=== PATIENT | male | born 1950 | race Caucasian/White ===

== ENCOUNTER 2019-02-07 15:11 | Emergency (ER) | payer BC, MEDICARE, OTHER ==
--- NOTE | 2019-02-07 16:15 | EDM.PDOC ---
ED HPI GENERAL MEDICAL PROBLEM - General Chief Complaint: Cardiovascular Problem Stated Complaint: HEART FLUTTERS Time Seen by Provider: 02/07/19 15:45 Source of Information: Reports: Patient History Limitations: Reports: No Limitations - History of Present Illness INITIAL COMMENTS - FREE TEXT/NARRATIVE: 68-year-old male who recently had an appointment with his primary provider, had his diltiazem increased from 300-360 mg because of persistent mild hypertension. He has occasional fluttering in the chest, today he had 2 episodes that were somewhat worse and more persistent for several minutes. He was concerned that it was because of the increased dose of his blood pressure medication, so he called the clinic to talk to his provider and they sent him to the emergency room. He arrived stable, in sinus rhythm, with no symptoms. Onset: Unknown/Unsure Associated Symptoms: Denies: Chest Pain, Cough, Malaise, Nausea/Vomiting, Shortness of Breath, Weakness denies Pain Score (Numeric/FACES): 0 - Related Data Allergies Allergy/AdvReac Type Severity Reaction Status Date / Time MYKEL Inhibitors Allergy Cough Verified 02/07/19 15:18 [id number]-[id number] Reductase Allergy Muscle Verified 02/07/19 15:18 Inhibitor Aches Home Meds: Home Meds Aspirin [Adult Low Dose Aspirin EC] 81 mg PO DAILY 05/23/13 [History] Multivitamin with Minerals [Multiple Vitamin] 1 tab PO DAILY 05/23/13 [History] Albuterol Sulfate [Proair Hfa] 8.5 gm INH Q4HR PRN 04/12/18 [History] Albuterol [Proventil Neb Soln] 2.5 mg INH Q4HR PRN 04/12/18 [History] Loratadine [Claritin] 10 mg PO ASDIRECTED 04/12/18 [History] Diltiazem HCl [Diltiazem 24Hr ER] 360 mg PO DAILY 02/07/19 [History] Past Medical History HEENT History: Reports: Impaired Vision Cardiovascular History: Reports: High Cholesterol, Hypertension Respiratory History: Reports: Asthma Genitourinary History: Reports: Other (See Below) Other Genitourinary History: voiding at night Musculoskeletal History: Reports: Fracture Other Musculoskeletal History: leg Endocrine/Metabolic History: Reports: Diabetes, Type II - Infectious Disease History Infectious Disease History: Reports: Chicken Pox, Measles, Mumps - Past Surgical History GI Surgical History: Reports: Hernia, Inguinal Social & Family History - Tobacco Use Smoking Status *Q: Never Smoker Second Hand Smoke Exposure: No - Caffeine Use Caffeine Use: Reports: Coffee - Alcohol Use Days Per Week of Alcohol Use: 2 Number of Drinks Per Day: 4 Total Drinks Per Week: 8 - Recreational Drug Use Recreational Drug Use: No ED ROS GENERAL - Review of Systems Review Of Systems: See Below Constitutional: Denies: Fever, Chills HEENT: Reports: No Symptoms Respiratory: Denies: Shortness of Breath, Cough Cardiovascular: Reports: Palpitations. Denies: Chest Pain GI/Abdominal: Denies: Abdominal Pain, Nausea, Vomiting Skin: Reports: No Symptoms Neurological: Reports: No Symptoms. Denies: Headache Psychiatric: Denies: Anxiety ED EXAM, GENERAL - Physical Exam Exam: See Below Exam Limited By: No Limitations General Appearance: Alert, No Apparent Distress Head: Atraumatic Respiratory/Chest: No Respiratory Distress, Lungs Clear Cardiovascular: Regular Rate, Rhythm. No: Extra Beats GI/Abdominal: Non-Tender Extremities: Normal Inspection. No: Pedal Edema Neurological: Alert, Oriented, No Motor/Sensory Deficits Course - Vital Signs Last Recorded V/S: Last Vital Signs Temp 97.7 F 02/07/19 16:40 Pulse 61 02/07/19 16:40 Resp 14 02/07/19 16:40 BP 128/58 L 02/07/19 16:40 Pulse Ox 96 02/07/19 16:40 - Re-Assessments/Exams Free Text/Narrative Re-Assessment/Exam: 02/07/19 16:14 monitoring tech shows normal sinus rhythm. Blood pressures 150/78. My recommendation would be to continue his current dosage of diltiazem but we can keep him on the monitoring and evaluation advisor for the next couple hours to see if he shows us any evidence of arrhythmia that he is experiencing. His daughter is not coming to pick him up for an hour. 02/07/19 16:47 Patient remained stable for the next hour, no arrhythmias on the monitor. He was discharged and will discuss his medications with his primary provider. A Holter monitor may also be reasonable. Departure - Departure Time of Disposition: 16:57 Disposition: Home, Self-Care 01 Clinical Impression: Palpitations Instructions: Palpitations Referrals: Adma Galloway MD [Primary Care Provider] - Forms: ED Department Discharge Care Plan Goals: Continue your current medications and discuss any medication changes with your primary provider. Return anytime if symptoms recur and are persistent or you are worsening such as chest pain or shortness of breath.
[2019-02-07 16:55] VITALS: PULSE 61
[2019-02-07 16:56] VITALS: BP 128/58
== END 2019-02-07 16:57 | disposition home or self-care (01) ==
LOC: JP.ED 15:11
DX: R00.2 Palpitations (principal); E78.00 Pure hypercholesterolemia, unspecified; I10 Essential (primary) hypertension; J45.909 Unspecified asthma, uncomplicated; E11.9 Type 2 diabetes mellitus without complications; Z88.8 Allergy status to other drugs, medicaments and biological substances; Z79.82 Long term (current) use of aspirin; Z79.899 Other long term (current) drug therapy
CPT/HCPCS: 99284

== ENCOUNTER 2019-05-07 02:16 | Emergency (ER) | payer MEDICARE ==
[2019-05-07] MEDS ORDERED: Acetaminophen 500 MG Tab PO ONE (02:46)
[2019-05-07 02:56] VITALS: BP 157/71; PULSE 98
--- NOTE | 2019-05-07 02:59 | EDM.PDOC ---
ED HPI GENERAL MEDICAL PROBLEM - General Chief Complaint: Fever Stated Complaint: TICK BITE Time Seen by Provider: 05/07/19 02:45 Source of Information: Reports: Patient, Old Records History Limitations: Reports: No Limitations - History of Present Illness INITIAL COMMENTS - FREE TEXT/NARRATIVE: 69 yo male presents with fever and chills since about 9 pm this evening. Has not taken anything for the fever. Denies any new localizing signs, has had R elbow and L knee pain for a week or so. 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 Reports urination about every hour which he says is not new, denies dysuria or hematuria. Recalls having a couple of deer ticks attached to him in the past month, claims he told his primary who didn't prophylax him with doxycycline. Is convinced he has a tick dz as the cause of his current fever. Had an influenza vaccine a week ago. Onset: Sudden Onset Date: 05/06/19 Onset Time: 21:00 Duration: Hour(s):, Constant Location: Reports: Generalized Quality: Reports: Other (no new pain with the fever.) Severity: Moderate (fever to 103+ F.) Improves with: Reports: None Worsens with: Reports: Other (? time) Context: Reports: Other (See HPI) Associated Symptoms: Reports: Fever/Chills. Denies: Chest Pain, Cough, Headaches, Nausea/Vomiting, Rash, Seizure, Shortness of Breath, Syncope Treatments FIRE FIGHTER: Reports: Other (see below) (none) - Related Data Allergies Allergy/AdvReac Type Severity Reaction Status Date / Time Qiljval-Jmb-Vgf Reductase Allergy Muscle Verified 02/07/19 15:18 Inhibitor Aches MYKEL Inhibitors AdvReac Cough Verified 03/06/19 14:25 Home Meds: Home Meds Aspirin [Adult Low Dose Aspirin EC] 81 mg PO DAILY 05/23/13 [History] Multivitamin with Minerals [Multiple Vitamin] 1 tab PO DAILY 05/23/13 [History] Albuterol Sulfate [Proair Hfa] 8.5 gm INH Q4HR PRN 04/12/18 [History] Albuterol [Proventil Neb Soln] 2.5 mg INH Q4HR PRN 04/12/18 [History] Loratadine [Claritin] 10 mg PO ASDIRECTED 04/12/18 [History] Diltiazem HCl [Diltiazem 24Hr ER] 300 mg PO DAILY 02/07/19 [History] predniSONE [Prednisone] 40 mg PO DAILY 03/07/19 [History] Doxycycline [Vibramycin] 100 mg PO BID #27 cap 05/07/19 [Rx] Past Medical History HEENT History: Reports: Impaired Vision Cardiovascular History: Reports: High Cholesterol, Hypertension Respiratory History: Reports: Asthma Gastrointestinal History: Reports: GERD Genitourinary History: Reports: Other (See Below) Other Genitourinary History: voiding at night Musculoskeletal History: Reports: Fracture Other Musculoskeletal History: leg Endocrine/Metabolic History: Reports: Diabetes, Type II Other Endocrine/Metabolic History: PRE-DIABETIC, HGB A1C IS 6.2 PER PT REPORT. DIET AND EXERCISE CONTROLLED. Hematologic History: Reports: Anticoagulation Therapy Other Hematologic History: ON ASPIRIN, HAS NOT TAKEN FOR A WEEK - Infectious Disease History Infectious Disease History: Reports: Chicken Pox, Measles, Mumps - Past Surgical History GI Surgical History: Reports: Colonoscopy, Hernia, Inguinal Social & Family History - Caffeine Use Caffeine Use: Reports: Coffee ED ROS GENERAL - Review of Systems Review Of Systems: See Below Constitutional: Reports: Fever, Chills HEENT: Reports: No Symptoms Respiratory: Reports: No Symptoms Cardiovascular: Reports: No Symptoms Endocrine: Reports: No Symptoms GI/Abdominal: Reports: No Symptoms : Reports: Frequency (not new). Denies: Dysuria, Flank Pain, Hematuria Musculoskeletal: Reports: Joint Pain (L knee and R elbow pain for about a week. ) Skin: Reports: No Symptoms Neurological: Reports: No Symptoms Psychiatric: Reports: No Symptoms ED EXAM, SEPSIS - Physical Exam Exam: See Below Exam Limited By: No Limitations General Appearance: Alert, WD/WN, No Apparent Distress Eye Exam: Bilateral Eye: Normal Inspection, Other (no photophobia) Ears: Normal External Exam, Normal Canal, Hearing Grossly Normal, Normal TMs Nose: Normal Inspection, No Blood Throat/Mouth: Normal Inspection, Normal Lips, Normal Oropharynx, Normal Voice, No Airway Compromise Head: Atraumatic, Normocephalic Neck: Normal Inspection, Supple, Non-Tender. No: Lymphadenopathy (R), Lymphadenopathy (L) Respiratory/Chest: No Respiratory Distress, Lungs Clear, Normal Breath Sounds, No Accessory Muscle Use Cardiovascular: Regular Rate, Rhythm, No Edema GI/Abdominal Exam: Normal Bowel Sounds, Soft, Non-Tender, No Distention Back: Normal Inspection. No: CVA Tenderness (R), CVA Tenderness (L) Extremities: Normal Inspection, Normal Range of Motion, Non-Tender, No Pedal Edema. No: Pedal Edema, Joint Swelling, Limited Range of Motion, Increased Warmth, Redness Neurological: Alert, Oriented, CN II-XII Intact, Normal Cognition, No Motor/ Sensory Deficits Psychiatric: Normal Affect, Normal Mood Skin: Warm, Dry, Intact, Normal Color, No Rash Lymphatic: Bilateral: No Adenopathy Course - Vital Signs Last Recorded V/S: Last Vital Signs Temp 39.4 C H 05/07/19 02:42 Pulse 98 05/07/19 02:42 Resp 22 H 05/07/19 02:42 BP 157/71 H 05/07/19 02:42 Pulse Ox 97 05/07/19 02:42 - Orders/Labs/Meds Orders: Active Orders 24 hr Category Date Time Status BABESIA MICROTI ANTIBODY PANEL Routine Lab 05/07/19 03:07 Ordered HUMAN GRANULOCYTIC KAYLEE-HGE Routine Lab 05/07/19 03:09 Ordered LYME, TOTAL AB TEST/REFLEX Routine Lab 05/07/19 03:07 Ordered Labs: Laboratory Tests 05/07/19 05/07/19 Range/Units 02:53 02:57 WBC 8.3 (4.5-11.0) K/uL RBC 4.55 (4.30-5.90) M/uL Hgb 13.1 (12.0-15.0) g/dL Hct 40.5 (40.0-54.0) % MCV 89 (80-98) fL MCH 29 (27-31) pg MCHC 32 (32-36) % Plt Count 143 L (150-400) K/uL Urine Color Yellow (YELLOW) Urine Appearance Clear (CLEAR) Urine pH 7.5 (5.0-8.0) Ur Specific [place] 1.020 (1.008-1.030) Urine Protein 30 H (NEGATIVE) mg/dL Urine Glucose (UA) Negative (NEGATIVE) mg/dL Urine Ketones Negative (NEGATIVE) mg/dL Urine Occult Blood Negative (NEGATIVE) Urine Nitrite Negative (NEGATIVE) Urine Bilirubin Negative (NEGATIVE) Urine Urobilinogen 0.2 (0.2-1.0) EU/dL Ur Leukocyte Esterase Negative (NEGATIVE) Urine RBC 0-5 (0-5) Urine WBC 0-5 (0-5) Ur Epithelial Cells Rare Amorphous Sediment Moderate Urine Bacteria Rare Urine Mucus Not seen Meds: Medications Discontinued Medications Generic Name Dose Route Start Last Admin Trade Name Dorys PRN Reason Stop Dose Admin Acetaminophen 1,000 mg 05/07/19 02:46 05/07/19 02:57 Tylenol Extra Strength PO 05/07/19 02:47 1,000 mg ONETIME ONE Administration Doxycycline Hyclate 100 mg 05/07/19 03:08 05/07/19 03:14 Vibramycin PO 05/07/19 03:09 100 mg ONETIME ONE Administration Departure - Departure Time of Disposition: 03:15 Disposition: Home, Self-Care 01 Condition: Fair Clinical Impression: Tick-borne disease - Discharge Information *PRESCRIPTION DRUG MONITORING PROGRAM REVIEWED*: No *COPY OF PRESCRIPTION DRUG MONITORING REPORT IN PATIENT YISEL: No Prescriptions: Doxycycline [Vibramycin] 100 mg PO BID #27 cap Instructions: Fever, Adult, [id number] Referrals: Adam Galloway MD [Primary Care Provider] - Forms: ED Department Discharge Additional Instructions: Take acetaminophen 1000 mg every 6 hrs for fever control. Take doxycycline every 12 hrs. Don't take anything that contains calcium, food or supplements, an hour before or after taking your doxycycline. Follow up with your doctor by or Monday to go over outstanding tests. Return if worse. Drink ample fluids so that your urine is light yellow in color. - My Orders Last 24 Hours: My Active Orders 05/07/19 03:07 BABESIA MICROTI ANTIBODY PANEL Routine LYME, TOTAL AB TEST/REFLEX Routine 05/07/19 03:09 HUMAN GRANULOCYTIC KAYLEE-HGE Routine - Assessment/Plan Last 24 Hours: My Active Orders 05/07/19 03:07 BABESIA MICROTI ANTIBODY PANEL Routine LYME, TOTAL AB TEST/REFLEX Routine 05/07/19 03:09 HUMAN GRANULOCYTIC KAYLEE-HGE Routine
[2019-05-07] MEDS ORDERED: Doxycycline 100 MG Cap PO ONE (03:08)
[2019-05-09 13:09] LABS: LYME IGG/IGM AB <0.91 ISR (0.00-0.90)
[2019-05-09 14:08] LABS: HGE IGG TITER Negative (Neg:<1:64); HGE IGM TITER Negative (Neg:<1:20)
[2019-05-09 16:08] LABS: BABESIA MICROTI IGG <1:10 (Neg:<1:10); BABESIA MICROTI IGM <1:10 (Neg:<1:10)
== END 2019-05-07 03:26 | disposition home or self-care (01) ==
LOC: JP.ED 02:16
DX: A93.8 Other specified arthropod-borne viral fevers (principal); I10 Essential (primary) hypertension; J45.909 Unspecified asthma, uncomplicated; E11.9 Type 2 diabetes mellitus without complications; Z88.8 Allergy status to other drugs, medicaments and biological substances; Z79.82 Long term (current) use of aspirin; Z79.899 Other long term (current) drug therapy
CPT/HCPCS: 36415; 81001; 85027; 86666; 86753; 99283; A9270; 86618

== ENCOUNTER 2022-02-20 15:33 | Emergency (ER) | payer MEDICARE ==
[2022-02-20 16:52] VITALS: BP 156/58; PULSE 57
== END 2022-02-20 17:51 | disposition home or self-care (01) ==
LOC: JP.ED 15:33
DX: R07.9 Chest pain, unspecified (principal); E78.00 Pure hypercholesterolemia, unspecified; I10 Essential (primary) hypertension; K21.9 Gastro-esophageal reflux disease without esophagitis; E11.9 Type 2 diabetes mellitus without complications; Z88.8 Allergy status to other drugs, medicaments and biological substances; Z79.84 Long term (current) use of oral hypoglycemic drugs
CPT/HCPCS: 36415; 80048; 82550; 84484; 85025; 93005; 99285

== ENCOUNTER 2022-05-05 00:39 | Emergency (ER) | payer MEDICARE ==
[2022-05-05] MEDS ORDERED: LORazepam 0.5 MG Tab PO ONE (01:19)
[2022-05-05 02:02] VITALS: BP 173/66; PULSE 57
== END 2022-05-05 02:15 | disposition home or self-care (01) ==
LOC: JP.ED 00:39
DX: I10 Essential (primary) hypertension (principal); I25.10 Atherosclerotic heart disease of native coronary artery without angina pectoris; E78.00 Pure hypercholesterolemia, unspecified; I25.2 Old myocardial infarction; J45.909 Unspecified asthma, uncomplicated; E11.9 Type 2 diabetes mellitus without complications; Z79.01 Long term (current) use of anticoagulants; Z79.82 Long term (current) use of aspirin; Z79.02 Long term (current) use of antithrombotics/antiplatelets; Z79.899 Other long term (current) drug therapy; Z79.84 Long term (current) use of oral hypoglycemic drugs; Z88.8 Allergy status to other drugs, medicaments and biological substances
CPT/HCPCS: 36415; 80048; 84484; 85025; 99283; A9270

== ENCOUNTER 2022-11-30 21:46 | Emergency (ER) | payer MEDICARE ==
[2022-11-30 22:12] VITALS: BP 155/63; PULSE 67
[2022-11-30] MEDS ORDERED: Magnesium Hydroxide 400 MG/5 ML Susp 30 ML Cup PO ONE (22:32)
[2022-11-30] MEDS ORDERED: Bisacodyl 5 MG Tab PO ONE (22:33)
== END 2022-11-30 23:32 | disposition home or self-care (01) ==
LOC: JP.ED 21:46
DX: K59.00 Constipation, unspecified (principal); R19.5 Other fecal abnormalities; E11.9 Type 2 diabetes mellitus without complications; I10 Essential (primary) hypertension; I25.10 Atherosclerotic heart disease of native coronary artery without angina pectoris; E78.00 Pure hypercholesterolemia, unspecified; I25.2 Old myocardial infarction; J45.909 Unspecified asthma, uncomplicated; N40.0 Benign prostatic hyperplasia without lower urinary tract symptoms; Z88.8 Allergy status to other drugs, medicaments and biological substances; Z79.82 Long term (current) use of aspirin; Z79.02 Long term (current) use of antithrombotics/antiplatelets; Z79.899 Other long term (current) drug therapy
CPT/HCPCS: 99283; A9270

== ENCOUNTER 2023-02-21 07:13 | Day surgery (SDC) | payer MEDICARE ==
[2023-02-21] MEDS ORDERED: Dextrose 5%-Lactated Ringers 1,000 ML IV SCH (07:30)
[2023-02-21] MEDS ORDERED: Carvedilol 12.5 MG Tab PO ONE (07:30)
[2023-02-21] MEDS ORDERED: Isosorbide Mononitrate 30 MG Tab.ER PO ONE (07:31)
[2023-02-21] MEDS ORDERED: fentaNYL 50 MCG/ML SDV ONE (07:39)
[2023-02-21] MEDS ORDERED: Midazolam 1 MG/ML 2 ML SDV ONE (07:39)
[2023-02-21] MEDS ORDERED: Propofol 200 MG/20 ML SDV ONE (07:39)
[2023-02-21 10:52] VITALS: PULSE 51
[2023-02-21 11:08] VITALS: BP 111/60
== END 2023-02-21 11:25 | disposition home or self-care (01) ==
LOC: JP.SDS 07:13
PROVIDERS: ATTEND Surgery
DX: K57.30 Diverticulosis of large intestine without perforation or abscess without bleeding (principal); K64.9 Unspecified hemorrhoids; I10 Essential (primary) hypertension; I25.10 Atherosclerotic heart disease of native coronary artery without angina pectoris; E11.9 Type 2 diabetes mellitus without complications; E78.00 Pure hypercholesterolemia, unspecified; Z88.8 Allergy status to other drugs, medicaments and biological substances
CPT/HCPCS: A9270-GY; J2250; J2704; J3010; J7121

== ENCOUNTER 2023-09-26 13:01 | Emergency (ER) | payer MEDICARE ==
[2023-09-26 13:29] LABS: APPEARANCE,URINE SLIGHTLY CLOUDY (CLEAR); BILIRUBIN,URINE NEGATIVE (NEGATIVE); COLOR,URINE YELLOW (YELLOW); GLUCOSE,URINE 100 mg/dL (NEGATIVE); KETONES,URINE NEGATIVE (NEGATIVE); LEUKOCYTE ESTERASE,URINE NEGATIVE (NEGATIVE); NITRITE,URINE NEGATIVE (NEGATIVE); OCCULT BLOOD,URINE NEGATIVE (NEGATIVE); PH,URINE 6.5 (5.0-8.0); PROTEIN,URINE NEGATIVE (NEGATIVE); UROBILINOGEN,URINE >=8.0 EU/dL (0.2-1.0)
[2023-09-26 13:38] LABS: HEMATOCRIT 32.1 % (38.4-49.7); HEMOGLOBIN 11.4 g/dL (12.9-16.9); MEAN CORPUSCULAR HEMOGLOBIN 34.3 pg (31.6-35.5); MEAN CORPUSCULAR HGB CONC 35.5 g/dL (31.6-35.5); MEAN CORPUSCULAR VOLUME 96.7 fL (81.4-99.0); PLATELET COUNT,PLT 86 K/uL (130-375); RED BLOOD CELL COUNT 3.32 M/uL (4.14-5.76); WHITE BLOOD CELL COUNT,WBC 4.9 K/uL (3.2-11.0)
[2023-09-26 13:52] LABS: RBC,URINE NOT SEEN (0-5)
[2023-09-26 13:53] LABS: BAND ABSOLUTE MAN 0.29 K/uL; BAND PERCENT MAN 6 % (5-11); LYMPHOCYTES PERCENT MAN 4 % (24-44); MONOCYTES ABSOLUTE MAN 0.25 K/uL (0.20-0.90); MONOCYTES PERCENT MAN 5 % (2-6); NEUTROPHILS ABSOLUTE MAN 4.17 K/uL (1.0-7.6); SEG NEUTROPHILS PERCENT MAN 85 % (36-66)
[2023-09-26 13:53] LABS: AMORPHOUS SEDIMENT,URINE MANY; BACTERIA,URINE RARE; EPITHELIAL CELLS,URINE RARE; MUCUS,URINE MANY; WBC,URINE 0-5 (0-5)
[2023-09-26 14:03] LABS: A/G RATIO 0.8 (1.2-2.2); ALANINE AMINOTRANSFERASE,ALT 54 U/L (12-78); ALBUMIN 2.3 g/dL (3.4-5.0); ALKALINE PHOSPHATASE 87 U/L (46-116); ASPARTATE AMNIOTRANSFERASE,AST 23 U/L (15-37); BILIRUBIN TOTAL 0.8 mg/dL (0.2-1.0); BLOOD UREA NITROGEN,BUN 11 mg/dL (7-18); CARBON DIOXIDE,CO2 24 mmol/L (21-32); CHLORIDE,CL 102 mmol/L (100-108); CREATININE 0.5 mg/dL (0.8-1.3); ESTIMATED GFR 106 mL/min (>60); GLUCOSE RANDOM 65 mg/dL (74-106); PROTEIN TOTAL,TP 5.3 g/dL (6.4-8.2); SODIUM,NA 138 mmol/L (140-148)
[2023-09-26 14:09] LABS: ANION GAP 14.8 mmol/L (5.0-14.0); POTASSIUM,K 2.8 mmol/L (3.6-5.2)
[2023-09-26] MEDS: Lactated Ringers 1,000 ML IV SCH (14:22)
[2023-09-26 14:46] LABS: CORONAVIRUS COVID-19 NAA NEGATIVE (NEGATIVE); INFLUENZA A NAA NEGATIVE (NEGATIVE); INFLUENZA B NAA NEGATIVE (NEGATIVE); RESPIRATORY SYNCYTIAL VIR NAA NEGATIVE (NEGATIVE)
[2023-09-26] MEDS: NS + KCl 20mEq/L 1,000 ML IV SCH (14:59)
[2023-09-26] MEDS: Glucose Gel 15 GM in 37.5 GM Tube PO ONE (15:20)
[2023-09-26] MEDS: Acetaminophen 500 MG Tab PO ONE (16:31)
[2023-09-26 16:56] LABS: CALCIUM 7.8 mg/dL (8.5-10.1); CREATININE 0.5 mg/dL (0.8-1.3); EST CRCL DRUG DOSING (CG) 127.76 mL/min
[2023-09-26 16:57] LABS: ANION GAP 11.8 mmol/L (5.0-14.0); POTASSIUM,K 2.8 mmol/L (3.6-5.2)
[2023-09-26] MEDS: Potassium Chloride 10 MEQ Cap.ER PO ONE (17:25)
[2023-09-26 17:38] VITALS: BP 122/47; PULSE 87
== END 2023-09-26 18:28 | disposition home or self-care (01) ==
LOC: EEVIPCON 13:01 → JP.ED 13:01
DX: E11.649 Type 2 diabetes mellitus with hypoglycemia without coma (principal); E87.6 Hypokalemia; H00.015 Hordeolum externum left lower eyelid; E86.0 Dehydration; K12.30 Oral mucositis (ulcerative), unspecified; I10 Essential (primary) hypertension; E78.00 Pure hypercholesterolemia, unspecified; Z79.82 Long term (current) use of aspirin; Z79.899 Other long term (current) drug therapy; Z88.8 Allergy status to other drugs, medicaments and biological substances
CPT/HCPCS: 0241U; 36415; 71045; 80048; 80053; 81001; 82947; 83605; 84145; 85025; 96361; 96365; 96366; 99284; 99285; A9270; J3480; J7120